=== PATIENT | female | born 1970 | race Caucasian/White ===

== ENCOUNTER 2020-01-31 17:26 | Emergency (ER) | payer BC ==
[2020-01-31] MEDS ORDERED: HYDROcodone 10MG/APAP 325MG 1 EA TAB PO ONE (18:10)
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
[2020-01-31 18:15] VITALS: BP 113/74
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
[2020-01-31 19:15] VITALS: O2SAT 100
[2020-01-31 19:31] VITALS: TEMP 98.2
== END 2020-01-31 19:36 | disposition home or self-care (01) ==
LOC: ER 17:26
DX: S93.402A Sprain of unspecified ligament of left ankle, initial encounter (principal); V92.03XA Drowning and submersion due to fall off other powered watercraft, initial encounter; Y93.89 Activity, other specified; Z79.899 Other long term (current) drug therapy; Z88.8 Allergy status to other drugs, medicaments and biological substances